=== PATIENT | female | born 1980 | race Caucasian/White ===

== ENCOUNTER 2023-08-24 12:19 | Outpatient (REF) | payer BC, SELFPAY ==
[2023-08-24 12:06] LABS: Abs Immature Grans 0.02 10^3/uL (0.0-0.06); Absolute Basophil Count 0.05 10^3/uL (0.0-0.2); Absolute Eosinophil Count 0.19 10^3/uL (0.0-0.7); Absolute Monocyte Count 0.56 10^3/uL (0.1-0.8); Absolute Neutrophil Count 5.52 10^3/uL (1.2-6.7); Basophils % 0.6; Eosinophils % 2.2; Immature Grans % 0.2; Lymphocytes % 27.5; MCHC 33.3 % (32.0-36.0); MCV 84 fL (80-95); MPV 9.8 fL (8.0-11.0); Monocytes % 6.4; Neutrophils % 63.1; Platelet Count 272 10^3/uL (130-400); RBC 4.64 10^6/uL (3.93-5.22); RDW 13.4 % (11.7-14.6); RDW-SD 41.1 fL; WBC 8.74 10^3/uL (4.4-10.8)
[2023-08-24 12:31] LABS: ALT 22 U/L (14-59); AST 13 U/L (15-37); Albumin 3.5 g/dL (3.4-5.0); Alkaline Phosphatase 106 U/L (46-116); BUN 9 mg/dL (7-18); Bilirubin, Total 0.3 mg/dL (0.2-1.0); CREATININE 0.7 mg/dL (0.55-1.02); Calcium 8.6 mg/dL (8.5-10.1); Chloride 107 mmol/L (98-107); Estimated GFR 111.36 (mL/min/1.73m2); Glucose 111 mg/dL (74-106); Sodium 143 mmol/L (136-145); Total Protein 7.2 g/dL (6.4-8.2)
== END 2023-08-24 12:20 | disposition home or self-care (01) ==
LOC: LBN 12:19
PROVIDERS: Visit Provider Internal Medicine Hematology & Oncology
DX: C50.911 Malignant neoplasm of unspecified site of right female breast (principal)
CPT/HCPCS: 80053; 85025

== ENCOUNTER 2023-10-05 05:32 | Outpatient (RCR) | payer BC, SELFPAY ==
[2023-09-07] MEDS: Normal Saline Flush 10 ML SYR IVP (13:00)
[2023-09-07 13:15] LABS: Abs Immature Grans 0.03 10^3/uL (0.0-0.06); Absolute Basophil Count 0.05 10^3/uL (0.0-0.2); Absolute Eosinophil Count 0.06 10^3/uL (0.0-0.7); Absolute Lymphocyte Count 1.92 10^3/uL (1.2-3.4); Absolute Monocyte Count 0.78 10^3/uL (0.1-0.8); Absolute Neutrophil Count 4.17 10^3/uL (1.2-6.7); Basophils % 0.7; Eosinophils % 0.9; HCT 41.4 % (36.0-46.0); HGB 13.5 g/dL (11.2-15.7); Immature Grans % 0.4; Lymphocytes % 27.4; MCH 27.5 pg (27.0-33.0); MCHC 32.6 % (32.0-36.0); MCV 84 fL (80-95); MPV 9.1 fL (8.0-11.0); Monocytes % 11.1; Neutrophils % 59.5; Platelet Count 255 10^3/uL (130-400); RBC 4.91 10^6/uL (3.93-5.22); RDW 13.2 % (11.7-14.6); RDW-SD 39.9 fL; WBC 7.01 10^3/uL (4.4-10.8)
[2023-09-07 13:29] LABS: ALT 30 U/L (14-59); AST 16 U/L (15-37); Alkaline Phosphatase 105 U/L (46-116); Anion Gap 9.5 mmol/L (3-11); BUN 17 mg/dL (7-18); Bilirubin, Total 0.4 mg/dL (0.2-1.0); CO2 28.5 mmol/L (21.0-32.0); CREATININE 0.8 mg/dL (0.55-1.02); Chloride 103 mmol/L (98-107); Estimated GFR 94.87 (mL/min/1.73m2); Glucose 91 mg/dL (74-106); Potassium 4.2 mmol/L (3.5-5.1); Sodium 141 mmol/L (136-145); Total Protein 7.4 g/dL (6.4-8.2)
[2023-09-21] MEDS: Normal Saline Flush 10 ML SYR IVP (12:40)
[2023-09-21 13:03] LABS: Abs Immature Grans 0.59 10^3/uL (0.0-0.06); HCT 37.7 % (36.0-46.0); HGB 12.6 g/dL (11.2-15.7); MCH 27.9 pg (27.0-33.0); MCHC 33.4 % (32.0-36.0); MCV 84 fL (80-95); MPV 10.3 fL (8.0-11.0); Platelet Count 256 10^3/uL (130-400); RBC 4.51 10^6/uL (3.93-5.22); RDW 14.3 % (11.7-14.6); RDW-SD 41.9 fL; WBC 11.78 10^3/uL (4.4-10.8)
[2023-09-21 13:13] LABS: Absolute Eosinophil Count 0.12 10^3/uL (0.0-0.7); Absolute Lymphocyte Count 2.24 10^3/uL (1.2-3.4); Absolute Monocyte Count 0.24 10^3/uL (0.1-0.8); Absolute Neutrophil Count 8.84 10^3/uL (1.2-6.7); Bands % 5; Diff Comment Manual Differential; Metamyelocytes % 2; Myelocytes % 1; RBC Morphology Normal
[2023-09-21 13:43] LABS: ALT 37 U/L (14-59); AST 16 U/L (15-37); Albumin 3.7 g/dL (3.4-5.0); Alkaline Phosphatase 122 U/L (46-116); BUN 16 mg/dL (7-18); Bilirubin, Total 0.4 mg/dL (0.2-1.0); CREATININE 0.8 mg/dL (0.55-1.02); Chloride 105 mmol/L (98-107); Estimated GFR 94.87 (mL/min/1.73m2); Glucose 119 mg/dL (74-106); Potassium 4.1 mmol/L (3.5-5.1); Sodium 142 mmol/L (136-145); Total Protein 7.4 g/dL (6.4-8.2)
[2023-10-05] MEDS: Normal Saline Flush 10 ML SYR IVP (12:33)
[2023-10-05 12:55] LABS: Abs Immature Grans 2.04 10^3/uL (0.0-0.06); HCT 37.6 % (36.0-46.0); HGB 12.6 g/dL (11.2-15.7); MCH 28.5 pg (27.0-33.0); MCHC 33.5 % (32.0-36.0); MCV 85 fL (80-95); MPV 9.4 fL (8.0-11.0); Platelet Count 238 10^3/uL (130-400); RBC 4.42 10^6/uL (3.93-5.22); RDW 15.6 % (11.7-14.6); RDW-SD 46.8 fL; WBC 13.28 10^3/uL (4.4-10.8)
[2023-10-05 13:07] LABS: Absolute Basophil Count 0.13 10^3/uL (0.0-0.2); Absolute Lymphocyte Count 1.46 10^3/uL (1.2-3.4); Absolute Monocyte Count 1.46 10^3/uL (0.1-0.8); Bands % 9; Diff Comment Manual Differential; Metamyelocytes % 5; Myelocytes % 5; RBC Morphology Normal
[2023-10-05 13:12] LABS: ALT 32 U/L (14-59); AST 11 U/L (15-37); Alkaline Phosphatase 107 U/L (46-116); Anion Gap 8.8 mmol/L (3-11); BUN 18 mg/dL (7-18); Bilirubin, Total 0.3 mg/dL (0.2-1.0); CO2 27.2 mmol/L (21.0-32.0); CREATININE 0.8 mg/dL (0.55-1.02); Calcium 9.2 mg/dL (8.5-10.1); Chloride 103 mmol/L (98-107); Estimated GFR 94.87 (mL/min/1.73m2); Glucose 122 mg/dL (74-106); Potassium 3.8 mmol/L (3.5-5.1); Sodium 139 mmol/L (136-145); Total Protein 7.4 g/dL (6.4-8.2)
== END 2023-10-05 23:59 | disposition home or self-care (01) ==
LOC: INF 05:32
PROVIDERS: Visit Provider Internal Medicine Hematology & Oncology
DX: C50.911 Malignant neoplasm of unspecified site of right female breast (principal); Z45.2 Encounter for adjustment and management of vascular access device
CPT/HCPCS: 36591; 80053; 85025

== ENCOUNTER 2023-11-02 01:06 | Outpatient (RCR) | payer BC, SELFPAY ==
[2023-10-19 08:47] LABS: HCT 35.8 % (36.0-46.0); HGB 12.1 g/dL (11.2-15.7); MCH 28.9 pg (27.0-33.0); MCHC 33.8 % (32.0-36.0); MCV 86 fL (80-95); MPV 9.7 fL (8.0-11.0); Nucleated RBC 0.5 % (0.0-0.3); Platelet Count 238 10^3/uL (130-400); RBC 4.18 10^6/uL (3.93-5.22); RDW 16.4 % (11.7-14.6); RDW-SD 50.3 fL
[2023-10-19 09:01] LABS: Absolute Basophil Count 0.09 10^3/uL (0.0-0.2); Absolute Eosinophil Count 0.09 10^3/uL (0.0-0.7); Absolute Lymphocyte Count 1.81 10^3/uL (1.2-3.4); Absolute Neutrophil Count 5.68 10^3/uL (1.2-6.7); Bands % 5 %; Diff Comment Manual Differential; Metamyelocytes % 3; Myelocytes % 1; RBC Morphology Normal
[2023-10-19 09:07] LABS: ALT 29 U/L (14-59); AST 16 U/L (15-37); Albumin 3.8 g/dL (3.4-5.0); Alkaline Phosphatase 119 U/L (46-116); Anion Gap 8.3 mmol/L (3-11); BUN 13 mg/dL (7-18); Bilirubin, Total 0.4 mg/dL (0.2-1.0); CO2 27.7 mmol/L (21.0-32.0); CREATININE 0.8 mg/dL (0.55-1.02); Calcium 8.6 mg/dL (8.5-10.1); Chloride 105 mmol/L (98-107); Estimated GFR 94.87 (mL/min/1.73m2); Glucose 129 mg/dL (74-106); Potassium 4.1 mmol/L (3.5-5.1); Sodium 141 mmol/L (136-145)
[2023-10-19] MEDS: Normal Saline Flush 10 ML SYR IVP (09:21)
[2023-11-02] MEDS: Normal Saline Flush 10 ML SYR IVP (08:11)
[2023-11-02 08:47] LABS: Abs Immature Grans 0.09 10^3/uL (0.0-0.06); Absolute Basophil Count 0.09 10^3/uL (0.0-0.2); Absolute Eosinophil Count 0.08 10^3/uL (0.0-0.7); Absolute Lymphocyte Count 1.81 10^3/uL (1.2-3.4); Absolute Monocyte Count 0.89 10^3/uL (0.1-0.8); Absolute Neutrophil Count 6.59 10^3/uL (1.2-6.7); Basophils % 0.9 %; Eosinophils % 0.8 %; HGB 11.9 g/dL (11.2-15.7); Immature Grans % 0.9 %; MCH 28.7 pg (27.0-33.0); MCHC 33.1 % (32.0-36.0); MCV 87 fL (80-95); MPV 9.4 fL (8.0-11.0); Monocytes % 9.3 %; Neutrophils % 69.1 %; Platelet Count 350 10^3/uL (130-400); RBC 4.15 10^6/uL (3.93-5.22); RDW 15.9 % (11.7-14.6); WBC 9.55 10^3/uL (4.4-10.8)
[2023-11-02 09:08] LABS: ALT 31 U/L (14-59); AST 12 U/L (15-37); Albumin 3.7 g/dL (3.4-5.0); Alkaline Phosphatase 86 U/L (46-116); BUN 16 mg/dL (7-18); Bilirubin, Total 0.4 mg/dL (0.2-1.0); CREATININE 0.7 mg/dL (0.55-1.02); Calcium 8.7 mg/dL (8.5-10.1); Chloride 104 mmol/L (98-107); Estimated GFR 111.36 (mL/min/1.73m2); Glucose 99 mg/dL (74-106); Potassium 3.9 mmol/L (3.5-5.1); Sodium 140 mmol/L (136-145)
== END 2023-11-05 23:59 | disposition home or self-care (01) ==
LOC: INF 01:06
PROVIDERS: Visit Provider Internal Medicine Hematology & Oncology
DX: Z45.2 Encounter for adjustment and management of vascular access device (principal); C50.919 Malignant neoplasm of unspecified site of unspecified female breast
CPT/HCPCS: 36591; 80053; 85025

== ENCOUNTER 2023-11-30 02:29 | Outpatient (RCR) | payer BC, SELFPAY ==
[2023-11-16] MEDS: Normal Saline Flush 10 ML SYR IVP (08:49)
[2023-11-16 09:18] LABS: Abs Immature Grans 0.12 10^3/uL (0.0-0.06); Absolute Basophil Count 0.06 10^3/uL (0.0-0.2); Absolute Eosinophil Count 0.24 10^3/uL (0.0-0.7); Absolute Lymphocyte Count 1.41 10^3/uL (1.2-3.4); Absolute Neutrophil Count 10.38 10^3/uL (1.2-6.7); Basophils % 0.5 %; Eosinophils % 1.9 %; HCT 36.2 % (36.0-46.0); Immature Grans % 0.9 %; Lymphocytes % 11.1 %; MCHC 33.1 % (32.0-36.0); MCV 87 fL (80-95); MPV 10.6 fL (8.0-11.0); Monocytes % 3.9 %; Neutrophils % 81.7 %; Platelet Count 153 10^3/uL (130-400); RBC 4.14 10^6/uL (3.93-5.22); RDW-SD 50.3 fL; WBC 12.71 10^3/uL (4.4-10.8)
[2023-11-16 09:44] LABS: ALT 42 U/L (14-59); AST 15 U/L (15-37); Albumin 3.8 g/dL (3.4-5.0); Alkaline Phosphatase 143 U/L (46-116); BUN 18 mg/dL (7-18); Bilirubin, Total 0.5 mg/dL (0.2-1.0); CREATININE 0.8 mg/dL (0.55-1.02); Calcium 8.9 mg/dL (8.5-10.1); Chloride 105 mmol/L (98-107); Estimated GFR 94.87 (mL/min/1.73m2); Glucose 119 mg/dL (74-106); Potassium 4.2 mmol/L (3.5-5.1); Sodium 140 mmol/L (136-145); Total Protein 7.3 g/dL (6.4-8.2)
[2023-11-30] MEDS: Normal Saline Flush 10 ML SYR IVP (07:45)
[2023-11-30 08:03] LABS: Abs Immature Grans 0.29 10^3/uL (0.0-0.06); Absolute Basophil Count 0.11 10^3/uL (0.0-0.2); Absolute Eosinophil Count 0.27 10^3/uL (0.0-0.7); Absolute Lymphocyte Count 1.59 10^3/uL (1.2-3.4); Absolute Monocyte Count 0.82 10^3/uL (0.1-0.8); Absolute Neutrophil Count 10.39 10^3/uL (1.2-6.7); Basophils % 0.8 %; HCT 37.4 % (36.0-46.0); HGB 12.3 g/dL (11.2-15.7); Immature Grans % 2.2 %; Lymphocytes % 11.8 %; MCH 29.1 pg (27.0-33.0); MCHC 32.9 % (32.0-36.0); MCV 89 fL (80-95); MPV 9.9 fL (8.0-11.0); Monocytes % 6.1 %; Neutrophils % 77.1 %; Platelet Count 243 10^3/uL (130-400); RBC 4.22 10^6/uL (3.93-5.22); RDW 15.7 % (11.7-14.6); RDW-SD 50.6 fL; WBC 13.47 10^3/uL (4.4-10.8)
[2023-11-30 08:22] LABS: ALT 37 U/L (14-59); AST 16 U/L (15-37); Albumin 3.8 g/dL (3.4-5.0); Alkaline Phosphatase 139 U/L (46-116); Anion Gap 10.7 mmol/L (3-11); BUN 12 mg/dL (7-18); Bilirubin, Total 0.51 mg/dL (0.2-1.0); CO2 25.3 mmol/L (21.0-32.0); CREATININE 0.8 mg/dL (0.55-1.02); Calcium 9.1 mg/dL (8.5-10.1); Chloride 102 mmol/L (98-107); Estimated GFR 94.87 (mL/min/1.73m2); Glucose 110 mg/dL (74-106); Potassium 4.1 mmol/L (3.5-5.1); Sodium 138 mmol/L (136-145); Total Protein 7.2 g/dL (6.4-8.2)
== END 2023-12-05 23:59 | disposition home or self-care (01) ==
LOC: INF 02:29
PROVIDERS: Visit Provider Internal Medicine Hematology & Oncology
DX: Z45.2 Encounter for adjustment and management of vascular access device (principal); C50.911 Malignant neoplasm of unspecified site of right female breast
CPT/HCPCS: 36591; 80053; 85025

== ENCOUNTER 2024-02-17 02:04 | Outpatient (CLI) | payer BC, SELFPAY ==
--- NOTE | 2024-02-17 | DI.DEXA_ITS ---
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 Lat eral survey image of the thoracic and lumbar spine. COMPARISON: No exams were available for comparison FINDINGS: Lateral view of the thoracic and lumbar spine shows no evidence of compression fractures. Bone mineral density measurements of the lumbar spine correspond to a total T-score of 1.4, in the n ormal range Bone mineral density measurements of the left hip correspond to a total T-score of 0.8. The femoral neck T-score is -0.1, in the normal range.. Theleft forearm bone mineral density measurements correspond to a T-score of the distal 3rd of 1.3, in the normal range. IMPRESSION: Normal bone mineral density.
== END 2024-02-17 02:24 ==
LOC: DI 02:04
PROVIDERS: Visit Provider Nurse Practitioner Family
DX: C50.911 Malignant neoplasm of unspecified site of right female breast (principal)
CPT/HCPCS: 77080

== ENCOUNTER 2024-02-22 18:41 | Outpatient (CLI) | payer BC, SELFPAY ==
[2024-02-22 23:27] LABS: Estradiol <12 pg/mL (See Note)
[2024-02-23 08:37] LABS: FSH 6.9 mIU/mL (See Note)
== END 2024-02-22 18:42 | disposition home or self-care (01) ==
LOC: LBO 18:42
PROVIDERS: Visit Provider Internal Medicine Hematology & Oncology
DX: C50.911 Malignant neoplasm of unspecified site of right female breast (principal); C50.919 Malignant neoplasm of unspecified site of unspecified female breast; E28.39 Other primary ovarian failure
CPT/HCPCS: 36415; 82670; 83001

== ENCOUNTER 2024-03-30 03:30 | Outpatient (CLI) | payer BC, SELFPAY ==
[2024-03-30 22:46] LABS: Estradiol <12 pg/mL (See Note)
[2024-03-30 23:00] LABS: FSH 12.4 mIU/mL (See Note)
== END 2024-03-30 03:31 | disposition home or self-care (01) ==
PROVIDERS: Internal Medicine Hematology & Oncology; Visit Provider Internal Medicine Hematology & Oncology
DX: C50.911 Malignant neoplasm of unspecified site of right female breast (principal); C50.919 Malignant neoplasm of unspecified site of unspecified female breast; E28.39 Other primary ovarian failure
CPT/HCPCS: 36415; 82670; 83001

== ENCOUNTER 2024-04-27 12:53 | Outpatient (CLI) | payer BC, SELFPAY ==
[2024-04-27 22:55] LABS: Estradiol <12 pg/mL (See Note)
[2024-04-28 08:27] LABS: FSH 9.4 mIU/mL (See Note)
== END 2024-04-27 12:54 | disposition home or self-care (01) ==
LOC: LBO 12:56
PROVIDERS: Visit Provider Internal Medicine Hematology & Oncology
DX: C50.911 Malignant neoplasm of unspecified site of right female breast (principal); E28.39 Other primary ovarian failure
CPT/HCPCS: 36415; 82670; 83001

== ENCOUNTER 2024-05-16 13:48 | Outpatient (CLI) | payer BC, SELFPAY ==
--- NOTE | 2024-05-16 13:45 | RT.EKG_ITS ---
APPROVED REPORT Exam: Resting ECG Reason for Exam: RIGHT BREAST CANCER STAGE 2 Patient Location: O HR:94 bpm ECG Measurements Heart Rate 94 AXIS NE 164 P 72 QRSd 82 QRS 60 QT 348 T 62 QTc 436 Conclusion Sinus rhythm...normal P axis, V-rate 50- 99 Probable left atrial enlargement...P >50mS, <-0.10mV V1 Otherwise normal ECG
== END 2024-05-16 13:49 | disposition home or self-care (01) ==
PROVIDERS: Visit Provider Internal Medicine Medical Oncology
DX: C50.911 Malignant neoplasm of unspecified site of right female breast (principal)
CPT/HCPCS: 93005; 93010

== ENCOUNTER 2024-05-18 13:48 | Outpatient (CLI) | payer BC, SELFPAY ==
[2024-05-18 13:56] LABS: Abs Immature Grans 0.04 10^3/uL (0.0-0.06); Absolute Basophil Count 0.06 10^3/uL (0.0-0.2); Absolute Lymphocyte Count 1.95 10^3/uL (1.2-3.4); Absolute Monocyte Count 0.52 10^3/uL (0.1-0.8); Absolute Neutrophil Count 6.49 10^3/uL (1.2-6.7); Basophils % 0.6 %; Eosinophils % 2.2 %; HCT 41.6 % (36.0-46.0); Immature Grans % 0.4 %; Lymphocytes % 21.1 %; MCH 27.7 pg (27.0-33.0); MCHC 33.7 % (32.0-36.0); MCV 82 fL (80-95); MPV 9.1 fL (8.0-11.0); Monocytes % 5.6 %; Neutrophils % 70.1 %; Platelet Count 278 10^3/uL (130-400); RBC 5.06 10^6/uL (3.93-5.22); RDW 13.4 % (11.7-14.6); RDW-SD 39.5 fL; WBC 9.26 10^3/uL (4.4-10.8)
== END 2024-05-18 13:49 | disposition home or self-care (01) ==
LOC: LBO 13:48
PROVIDERS: Visit Provider Internal Medicine Medical Oncology
DX: C50.911 Malignant neoplasm of unspecified site of right female breast (principal)
CPT/HCPCS: 36415; 85025

== ENCOUNTER 2024-06-01 01:36 | Outpatient (CLI) | payer BC, SELFPAY ==
[2024-06-01 12:46] LABS: Abs Immature Grans 0.05 10^3/uL (0.0-0.06); Absolute Basophil Count 0.05 10^3/uL (0.0-0.2); Absolute Eosinophil Count 0.12 10^3/uL (0.0-0.7); Absolute Lymphocyte Count 1.26 10^3/uL (1.2-3.4); Absolute Monocyte Count 0.18 10^3/uL (0.1-0.8); Absolute Neutrophil Count 3.94 10^3/uL (1.2-6.7); Basophils % 0.9 %; Eosinophils % 2.1 %; HCT 42.6 % (36.0-46.0); HGB 14.1 g/dL (11.2-15.7); Immature Grans % 0.9 %; Lymphocytes % 22.5 %; MCH 27.9 pg (27.0-33.0); MCHC 33.1 % (32.0-36.0); MCV 84 fL (80-95); Monocytes % 3.2 %; Neutrophils % 70.4 %; RBC 5.05 10^6/uL (3.93-5.22); RDW 13.9 % (11.7-14.6); RDW-SD 41.3 fL
[2024-06-01 13:15] LABS: Platelet Count 174 10^3/uL (130-400)
[2024-06-01 13:50] LABS: TSH 2.58 uIU/mL (0.36-3.74)
== END 2024-06-01 01:37 | disposition home or self-care (01) ==
PROVIDERS: Internal Medicine Medical Oncology; Nurse Practitioner Adult Health; Visit Provider Internal Medicine Hematology & Oncology
DX: E89.0 Postprocedural hypothyroidism (principal); C50.911 Malignant neoplasm of unspecified site of right female breast
CPT/HCPCS: 36415; 80053; 82670; 83001; 84443; 85025

== ENCOUNTER 2024-06-01 12:58 | Outpatient (CLI) | payer BC, SELFPAY ==
--- NOTE | 2024-06-01 13:00 | RT.EKG_ITS ---
APPROVED REPORT Exam: Resting ECG Reason for Exam: BREAST CA Patient Location: O HR:74 bpm ECG Measurements Heart Rate 74 AXIS FL 153 P 65 QRSd 81 QRS 63 QT 377 T 65 QTc 419 Conclusion Sinus rhythm...normal P axis, V-rate 50- 99 Normal Electrocardiogram
== END 2024-06-01 12:59 | disposition home or self-care (01) ==
LOC: CARDOPNVT 12:58
PROVIDERS: Visit Provider Internal Medicine Medical Oncology
DX: C50.911 Malignant neoplasm of unspecified site of right female breast (principal)
CPT/HCPCS: 93005; 93010

== ENCOUNTER 2024-06-15 04:56 | Outpatient (CLI) | payer BC, SELFPAY ==
[2024-06-15 11:21] LABS: Abs Immature Grans 0.01 10^3/uL (0.0-0.06); Absolute Basophil Count 0.05 10^3/uL (0.0-0.2); Absolute Eosinophil Count 0.06 10^3/uL (0.0-0.7); Absolute Monocyte Count 0.32 10^3/uL (0.1-0.8); Absolute Neutrophil Count 3.77 10^3/uL (1.2-6.7); Basophils % 0.9 %; Eosinophils % 1.1 %; HGB 12.6 g/dL (11.2-15.7); Immature Grans % 0.2 %; Lymphocytes % 22.2 %; MCH 28.7 pg (27.0-33.0); MCHC 33.2 % (32.0-36.0); MCV 87 fL (80-95); MPV 8.5 fL (8.0-11.0); Monocytes % 5.9 %; Neutrophils % 69.7 %; Platelet Count 243 10^3/uL (130-400); RBC 4.39 10^6/uL (3.93-5.22); RDW 15.3 % (11.7-14.6); RDW-SD 47.4 fL; WBC 5.41 10^3/uL (4.4-10.8)
[2024-06-15 12:21] LABS: ALT 36 U/L (14-59); AST 28 U/L (15-37); Albumin 4.2 g/dL (3.4-5.0); Alkaline Phosphatase 123 U/L (46-116); Anion Gap 5.4 mmol/L (3-11); BUN 12 mg/dL (7-18); Bilirubin, Total 0.55 mg/dL (0.2-1.0); CO2 32.6 mmol/L (21.0-32.0); Calcium 9.6 mg/dL (8.5-10.1); Chloride 104 mmol/L (98-107); Estimated GFR 72.13 (mL/min/1.73m2); Glucose 106 mg/dL (74-106); Potassium 3.7 mmol/L (3.5-5.1); Sodium 142 mmol/L (136-145); Total Protein 7.7 g/dL (6.4-8.2)
[2024-06-15 20:18] LABS: Estradiol <12 pg/mL (See Note)
[2024-06-15 20:28] LABS: FSH 11.3 mIU/mL (See Note)
== END 2024-06-15 04:57 | disposition home or self-care (01) ==
PROVIDERS: Visit Provider Nurse Practitioner Family
DX: E28.39 Other primary ovarian failure (principal); C50.911 Malignant neoplasm of unspecified site of right female breast
CPT/HCPCS: 36415; 80053; 82670; 83001; 85025

== ENCOUNTER 2024-06-15 09:24 | Outpatient (CLI) | payer BC, SELFPAY ==
--- NOTE | 2024-06-15 09:15 | RT.EKG_ITS ---
APPROVED REPORT Exam: Resting ECG Reason for Exam: BREAST CA Patient Location: O HR:79 bpm ECG Measurements Heart Rate 79 AXIS AZ 146 P 41 QRSd 94 QRS 22 QT 373 T 24 QTc 428 Conclusion Sinus rhythm...normal P axis, V-rate 50- 99 Normal Electrocardiogram
== END 2024-06-15 09:25 | disposition home or self-care (01) ==
PROVIDERS: Visit Provider Nurse Practitioner Family
DX: C50.911 Malignant neoplasm of unspecified site of right female breast (principal); Z79.899 Other long term (current) drug therapy
CPT/HCPCS: 93005; 93010

== ENCOUNTER 2024-07-13 01:47 | Outpatient (CLI) | payer BC, SELFPAY ==
[2024-07-13 09:38] LABS: Abs Immature Grans 0.02 10^3/uL (0.0-0.06); Absolute Basophil Count 0.06 10^3/uL (0.0-0.2); Absolute Eosinophil Count 0.06 10^3/uL (0.0-0.7); Absolute Lymphocyte Count 1.21 10^3/uL (1.2-3.4); Absolute Monocyte Count 0.36 10^3/uL (0.1-0.8); Absolute Neutrophil Count 3.72 10^3/uL (1.2-6.7); Basophils % 1.1 %; Eosinophils % 1.1 %; HGB 13.2 g/dL (11.2-15.7); Immature Grans % 0.4 %; Lymphocytes % 22.3 %; MCH 29.5 pg (27.0-33.0); MCHC 33.8 % (32.0-36.0); MCV 87 fL (80-95); MPV 8.4 fL (8.0-11.0); Monocytes % 6.6 %; Neutrophils % 68.5 %; Platelet Count 206 10^3/uL (130-400); RBC 4.47 10^6/uL (3.93-5.22); RDW 15.5 % (11.7-14.6); RDW-SD 48.6 fL; WBC 5.43 10^3/uL (4.4-10.8)
[2024-07-13 10:02] LABS: ALT 30 U/L (14-59); AST 21 U/L (15-37); Alkaline Phosphatase 126 U/L (46-116); Anion Gap 5.3 mmol/L (3-11); BUN 15 mg/dL (7-18); CO2 32.7 mmol/L (21.0-32.0); Calcium 9.5 mg/dL (8.5-10.1); Chloride 101 mmol/L (98-107); Estimated GFR 72.13 (mL/min/1.73m2); Glucose 94 mg/dL (74-106); Potassium 3.6 mmol/L (3.5-5.1); Sodium 139 mmol/L (136-145); Total Protein 7.7 g/dL (6.4-8.2)
[2024-07-13 23:03] LABS: FSH 10.1 mIU/mL (See Note)
[2024-07-13 23:06] LABS: Estradiol <12 pg/mL (See Note)
== END 2024-07-13 01:48 | disposition home or self-care (01) ==
LOC: LBO 01:47
PROVIDERS: Visit Provider Nurse Practitioner Family
DX: E28.39 Other primary ovarian failure (principal); C50.911 Malignant neoplasm of unspecified site of right female breast
CPT/HCPCS: 36415; 80053; 82670; 83001; 85025

== ENCOUNTER 2024-07-13 08:50 | Outpatient (CLI) | payer BC, SELFPAY ==
--- NOTE | 2024-07-13 08:45 | RT.EKG_ITS ---
APPROVED REPORT Exam: Resting ECG Reason for Exam: BREAST CANCER Patient Location: O HR:99 bpm ECG Measurements Heart Rate 99 AXIS DE 145 P 53 QRSd 80 QRS 22 QT 348 T 30 QTc 447 Conclusion Sinus rhythm...normal P axis, V-rate 50- 99 Normal Electrocardiogram
== END 2024-07-13 08:51 | disposition home or self-care (01) ==
PROVIDERS: Visit Provider Internal Medicine Medical Oncology
DX: C50.911 Malignant neoplasm of unspecified site of right female breast (principal); Z79.899 Other long term (current) drug therapy
CPT/HCPCS: 93005; 93010

== ENCOUNTER 2024-08-10 02:58 | Outpatient (CLI) | payer BC, SELFPAY ==
[2024-08-10 09:35] LABS: Abs Immature Grans 0.02 10^3/uL (0.0-0.06); Absolute Basophil Count 0.06 10^3/uL (0.0-0.2); Absolute Eosinophil Count 0.07 10^3/uL (0.0-0.7); Absolute Lymphocyte Count 1.17 10^3/uL (1.2-3.4); Absolute Monocyte Count 0.36 10^3/uL (0.1-0.8); Absolute Neutrophil Count 3.41 10^3/uL (1.2-6.7); Basophils % 1.2 %; Eosinophils % 1.4 %; HCT 37.9 % (36.0-46.0); Immature Grans % 0.4 %; MCHC 34.3 % (32.0-36.0); MCV 87 fL (80-95); MPV 8.7 fL (8.0-11.0); Monocytes % 7.1 %; Neutrophils % 66.9 %; Platelet Count 205 10^3/uL (130-400); RBC 4.34 10^6/uL (3.93-5.22); RDW 14.6 % (11.7-14.6); WBC 5.09 10^3/uL (4.4-10.8)
[2024-08-10 09:52] LABS: ALT 26 U/L (14-59); AST 17 U/L (15-37); Alkaline Phosphatase 118 U/L (46-116); Anion Gap 6.2 mmol/L (3-11); BUN 18 mg/dL (7-18); Bilirubin, Total 0.36 mg/dL (0.2-1.0); CO2 31.8 mmol/L (21.0-32.0); Calcium 9.6 mg/dL (8.5-10.1); Chloride 105 mmol/L (98-107); Estimated GFR 72.13 (mL/min/1.73m2); Glucose 95 mg/dL (74-106); Potassium 3.9 mmol/L (3.5-5.1); Sodium 143 mmol/L (136-145); Total Protein 7.6 g/dL (6.4-8.2)
[2024-08-10 18:13] LABS: Estradiol <12 pg/mL (See Note)
[2024-08-10 18:37] LABS: FSH 10.4 mIU/mL (See Note)
== END 2024-08-10 02:59 | disposition home or self-care (01) ==
PROVIDERS: Visit Provider Nurse Practitioner Family
DX: E28.39 Other primary ovarian failure (principal); C50.911 Malignant neoplasm of unspecified site of right female breast
CPT/HCPCS: 36415; 80053; 82670; 83001; 85025

== ENCOUNTER 2024-08-10 08:57 | Outpatient (CLI) | payer BC, SELFPAY ==
--- NOTE | 2024-08-10 08:45 | RT.EKG_ITS ---
APPROVED REPORT Exam: Resting ECG Reason for Exam: AT RISK FOR PROLONGED QT INTERVAL SYNDROME Patient Location: O HR:76 bpm ECG Measurements Heart Rate 76 AXIS IA 147 P 23 QRSd 81 QRS 17 QT 383 T 32 QTc 431 Conclusion Sinus rhythm...normal P axis, V-rate 50- 99 Probable left atrial enlargement...P >50mS, <-0.10mV V1 Otherwise normal ECG
== END 2024-08-10 08:58 | disposition home or self-care (01) ==
PROVIDERS: Visit Provider Nurse Practitioner Family
DX: E28.39 Other primary ovarian failure (principal); C50.911 Malignant neoplasm of unspecified site of right female breast; Z79.899 Other long term (current) drug therapy
CPT/HCPCS: 93005; 93010

== ENCOUNTER 2024-09-08 01:00 | Outpatient (CLI) | payer BC, SELFPAY ==
[2024-09-08 08:45] LABS: Abs Immature Grans 0.02 10^3/uL (0.0-0.06); Absolute Basophil Count 0.06 10^3/uL (0.0-0.2); Absolute Eosinophil Count 0.08 10^3/uL (0.0-0.7); Absolute Lymphocyte Count 1.09 10^3/uL (1.2-3.4); Absolute Monocyte Count 0.36 10^3/uL (0.1-0.8); Absolute Neutrophil Count 3.17 10^3/uL (1.2-6.7); Basophils % 1.3 %; Eosinophils % 1.7 %; HCT 40.7 % (36.0-46.0); HGB 13.5 g/dL (11.2-15.7); Immature Grans % 0.4 %; Lymphocytes % 22.8 %; MCH 30.1 pg (27.0-33.0); MCHC 33.2 % (32.0-36.0); MCV 91 fL (80-95); MPV 8.8 fL (8.0-11.0); Monocytes % 7.5 %; Neutrophils % 66.3 %; Platelet Count 190 10^3/uL (130-400); RBC 4.49 10^6/uL (3.93-5.22); RDW 13.5 % (11.7-14.6); RDW-SD 44.7 fL; WBC 4.78 10^3/uL (4.4-10.8)
[2024-09-08 09:28] LABS: Calculated LDL 118 mg/dL (<100); Cholesterol 212 mg/dL (<200); HDL Cholesterol 65 mg/dL (>or=50); Triglyceride 147 mg/dL (<150)
[2024-09-08 10:02] LABS: ALT 27 U/L (14-59); AST 18 U/L (15-37); Albumin 4.3 g/dL (3.4-5.0); Alkaline Phosphatase 116 U/L (46-116); Anion Gap 11.9 mmol/L (3-11); BUN 18 mg/dL (7-18); Bilirubin, Total 0.6 mg/dL (0.2-1.0); CO2 27.1 mmol/L (21.0-32.0); CREATININE 0.9 mg/dL (0.55-1.02); Calcium 9.9 mg/dL (8.5-10.1); Chloride 105 mmol/L (98-107); Estimated GFR 81.86 (mL/min/1.73m2); Glucose 88 mg/dL (74-106); Potassium 3.7 mmol/L (3.5-5.1); Sodium 144 mmol/L (136-145); Total Protein 7.6 g/dL (6.4-8.2)
[2024-09-08 19:22] LABS: FSH 9.9 mIU/mL (See Note)
[2024-09-08 19:33] LABS: Estradiol <12 pg/mL (See Note)
== END 2024-09-08 01:01 | disposition home or self-care (01) ==
LOC: LBO 01:00
PROVIDERS: Nurse Practitioner Family; Visit Provider Nurse Practitioner Family
DX: E11.9 Type 2 diabetes mellitus without complications (principal); Z13.6 Encounter for screening for cardiovascular disorders; C50.911 Malignant neoplasm of unspecified site of right female breast; E28.39 Other primary ovarian failure
CPT/HCPCS: 36415; 80053; 80061; 82670; 83001; 85025

== ENCOUNTER 2024-09-08 07:59 | Outpatient (CLI) | payer BC, SELFPAY ==
--- NOTE | 2024-09-08 08:00 | RT.EKG_ITS ---
APPROVED REPORT Exam: Resting ECG Reason for Exam: BREAST CA Patient Location: O HR:77 bpm ECG Measurements Heart Rate 77 AXIS SC 153 P 27 QRSd 89 QRS 21 QT 382 T 30 QTc 433 Conclusion Sinus rhythm...normal P axis, V-rate 50- 99 Probable left atrial enlargement...P >50mS, <-0.10mV V1 Otherwise normal ECG
== END 2024-09-08 08:00 | disposition home or self-care (01) ==
PROVIDERS: Visit Provider Nurse Practitioner Family
DX: C50.511 Malignant neoplasm of lower-outer quadrant of right female breast (principal); Z79.899 Other long term (current) drug therapy
CPT/HCPCS: 93270

== ENCOUNTER 2024-10-06 02:58 | Outpatient (CLI) | payer BC, SELFPAY ==
[2024-10-06 10:13] LABS: Abs Immature Grans 0.01 10^3/uL (0.0-0.06); Absolute Basophil Count 0.05 10^3/uL (0.0-0.2); Absolute Eosinophil Count 0.06 10^3/uL (0.0-0.7); Absolute Lymphocyte Count 1.16 10^3/uL (1.2-3.4); Absolute Monocyte Count 0.27 10^3/uL (0.1-0.8); Absolute Neutrophil Count 2.64 10^3/uL (1.2-6.7); Basophils % 1.2 %; Eosinophils % 1.4 %; HCT 39.9 % (36.0-46.0); HGB 13.6 g/dL (11.2-15.7); Immature Grans % 0.2 %; Lymphocytes % 27.7 %; MCH 30.4 pg (27.0-33.0); MCHC 34.1 % (32.0-36.0); MCV 89 fL (80-95); MPV 8.9 fL (8.0-11.0); Monocytes % 6.4 %; Neutrophils % 63.1 %; Platelet Count 164 10^3/uL (130-400); RBC 4.47 10^6/uL (3.93-5.22); RDW 13.3 % (11.7-14.6); RDW-SD 43.3 fL; WBC 4.19 10^3/uL (4.4-10.8)
[2024-10-06 10:32] LABS: ALT 24 U/L (14-59); AST 18 U/L (15-37); Albumin 4.1 g/dL (3.4-5.0); Alkaline Phosphatase 113 U/L (46-116); BUN 15 mg/dL (7-18); Bilirubin, Total 0.6 mg/dL (0.2-1.0); CREATININE 0.9 mg/dL (0.55-1.02); Calcium 9.5 mg/dL (8.5-10.1); Chloride 103 mmol/L (98-107); Estimated GFR 81.86 (mL/min/1.73m2); Glucose 90 mg/dL (74-106); Potassium 4.1 mmol/L (3.5-5.1); Sodium 141 mmol/L (136-145); Total Protein 7.8 g/dL (6.4-8.2)
[2024-10-06 18:10] LABS: FSH 14.5 mIU/mL (See Note)
[2024-10-06 18:22] LABS: Estradiol <12 pg/mL (See Note)
== END 2024-10-06 02:59 | disposition home or self-care (01) ==
LOC: LBO 02:58
PROVIDERS: Visit Provider Nurse Practitioner Family
DX: C50.911 Malignant neoplasm of unspecified site of right female breast (principal); E28.39 Other primary ovarian failure
CPT/HCPCS: 36415; 80053; 82670; 83001; 85025

== ENCOUNTER 2024-11-03 00:49 | Outpatient (CLI) | payer BC, SELFPAY ==
[2024-11-03 12:26] LABS: Abs Immature Grans 0.01 10^3/uL (0.0-0.06); Absolute Basophil Count 0.05 10^3/uL (0.0-0.2); Absolute Eosinophil Count 0.04 10^3/uL (0.0-0.7); Absolute Lymphocyte Count 1.39 10^3/uL (1.2-3.4); Absolute Monocyte Count 0.34 10^3/uL (0.1-0.8); Absolute Neutrophil Count 2.91 10^3/uL (1.2-6.7); Basophils % 1.1 %; Eosinophils % 0.8 %; HCT 40.6 % (36.0-46.0); HGB 13.8 g/dL (11.2-15.7); Immature Grans % 0.2 %; Lymphocytes % 29.3 %; MCH 30.1 pg (27.0-33.0); MCV 89 fL (80-95); MPV 8.6 fL (8.0-11.0); Monocytes % 7.2 %; Neutrophils % 61.4 %; Platelet Count 194 10^3/uL (130-400); RBC 4.59 10^6/uL (3.93-5.22); RDW 13.5 % (11.7-14.6); RDW-SD 43.4 fL; WBC 4.74 10^3/uL (4.4-10.8)
[2024-11-03 12:42] LABS: ALT 22 U/L (14-59); AST 18 U/L (15-37); Albumin 4.4 g/dL (3.4-5.0); Alkaline Phosphatase 131 U/L (46-116); Anion Gap 8.6 mmol/L (3-11); BUN 13 mg/dL (7-18); Bilirubin, Total 0.7 mg/dL (0.2-1.0); CO2 31.4 mmol/L (21.0-32.0); Chloride 101 mmol/L (98-107); Estimated GFR 72.13 (mL/min/1.73m2); Glucose 92 mg/dL (74-106); Potassium 3.7 mmol/L (3.5-5.1); Sodium 141 mmol/L (136-145); Total Protein 8.1 g/dL (6.4-8.2)
[2024-11-03 12:52] LABS: TSH (W/Ref FT4) 2.59 uIU/mL (0.36-3.74)
[2024-11-03 18:43] LABS: Estradiol 16 pg/mL (See Note)
[2024-11-03 18:53] LABS: FSH 29.6 mIU/mL (See Note)
== END 2024-11-03 00:50 | disposition home or self-care (01) ==
LOC: LBO 00:49
PROVIDERS: Internal Medicine; Visit Provider Nurse Practitioner Family
DX: E28.39 Other primary ovarian failure (principal); C50.911 Malignant neoplasm of unspecified site of right female breast; Z85.850 Personal history of malignant neoplasm of thyroid
CPT/HCPCS: 36415; 80053; 82670; 83001; 84443; 85025

== ENCOUNTER 2024-12-01 00:42 | Outpatient (CLI) | payer BC, SELFPAY ==
[2024-12-01 13:29] LABS: Abs Immature Grans 0.01 10^3/uL (0.0-0.06); Absolute Basophil Count 0.06 10^3/uL (0.0-0.2); Absolute Eosinophil Count 0.08 10^3/uL (0.0-0.7); Absolute Lymphocyte Count 1.36 10^3/uL (1.2-3.4); Absolute Neutrophil Count 2.76 10^3/uL (1.2-6.7); Basophils % 1.3 %; Eosinophils % 1.8 %; HCT 40.7 % (36.0-46.0); HGB 14.3 g/dL (11.2-15.7); Immature Grans % 0.2 %; Lymphocytes % 29.8 %; MCH 31.2 pg (27.0-33.0); MCHC 35.1 % (32.0-36.0); MCV 89 fL (80-95); MPV 8.7 fL (8.0-11.0); Monocytes % 6.6 %; Neutrophils % 60.3 %; Platelet Count 188 10^3/uL (130-400); RBC 4.58 10^6/uL (3.93-5.22); RDW 13.8 % (11.7-14.6); RDW-SD 43.9 fL; WBC 4.57 10^3/uL (4.4-10.8)
[2024-12-01 13:45] LABS: ALT 23 U/L (14-59); AST 15 U/L (15-37); Albumin 4.3 g/dL (3.4-5.0); Alkaline Phosphatase 126 U/L (46-116); Anion Gap 8.8 mmol/L (3-11); BUN 13 mg/dL (7-18); Bilirubin, Total 0.6 mg/dL (0.2-1.0); CO2 28.2 mmol/L (21.0-32.0); CREATININE 0.8 mg/dL (0.55-1.02); Calcium 9.2 mg/dL (8.5-10.1); Chloride 102 mmol/L (98-107); Estimated GFR 94.28 (mL/min/1.73m2); Glucose 87 mg/dL (74-106); Potassium 3.7 mmol/L (3.5-5.1); Sodium 139 mmol/L (136-145); Total Protein 8.1 g/dL (6.4-8.2)
== END 2024-12-01 00:43 | disposition home or self-care (01) ==
LOC: LBO 00:42
PROVIDERS: Visit Provider Nurse Practitioner Family
DX: E28.39 Other primary ovarian failure (principal); C50.911 Malignant neoplasm of unspecified site of right female breast
CPT/HCPCS: 36415; 80053; 82670; 83001; 85025

== ENCOUNTER 2024-12-29 00:51 | Outpatient (CLI) | payer BC, SELFPAY ==
[2024-12-29 13:41] LABS: Abs Immature Grans 0.02 10^3/uL (0.0-0.06); HCT 35.8 % (36.0-46.0); HGB 12.4 g/dL (11.2-15.7); Immature Grans % 0.4 %; MCH 31.5 pg (27.0-33.0); MCHC 34.6 % (32.0-36.0); MCV 91 fL (80-95); MPV 8.5 fL (8.0-11.0); Platelet Count 181 10^3/uL (130-400); RBC 3.94 10^6/uL (3.93-5.22); RDW 13.7 % (11.7-14.6); RDW-SD 44.8 fL; WBC 4.89 10^3/uL (4.4-10.8)
[2024-12-29 14:35] LABS: ALT 21 U/L (14-59); AST 12 U/L (15-37); Albumin 4.0 g/dL (3.4-5.0); Alkaline Phosphatase 114 U/L (46-116); Anion Gap 8.9 mmol/L (3-11); BUN 17 mg/dL (7-18); Bilirubin, Total 0.7 mg/dL (0.2-1.0); CO2 29.1 mmol/L (21.0-32.0); Calcium 9.4 mg/dL (8.5-10.1); Chloride 103 mmol/L (98-107); Estimated GFR 94.28 (mL/min/1.73m2); Glucose 97 mg/dL (74-106); Potassium 3.7 mmol/L (3.5-5.1); Sodium 141 mmol/L (136-145); Total Protein 7.6 g/dL (6.4-8.2)
== END 2024-12-29 00:52 | disposition home or self-care (01) ==
PROVIDERS: Visit Provider Nurse Practitioner Family
DX: C50.911 Malignant neoplasm of unspecified site of right female breast (principal)
CPT/HCPCS: 36415; 80053; 85025

== ENCOUNTER 2025-01-26 00:29 | Outpatient (CLI) | payer BC, SELFPAY ==
[2025-01-26 12:12] LABS: Abs Immature Grans 0.02 10^3/uL (0.0-0.06); HCT 34.0 % (36.0-46.0); HGB 12.1 g/dL (11.2-15.7); Immature Grans % 0.5 %; MCH 31.3 pg (27.0-33.0); MCHC 35.6 % (32.0-36.0); MCV 88 fL (80-95); MPV 8.8 fL (8.0-11.0); Platelet Count 175 10^3/uL (130-400); RBC 3.87 10^6/uL (3.93-5.22); RDW 13.2 % (11.7-14.6); RDW-SD 42.1 fL; WBC 4.43 10^3/uL (4.4-10.8)
[2025-01-26 12:30] LABS: ALT 19 U/L (14-59); AST 13 U/L (15-37); Albumin 3.8 g/dL (3.4-5.0); Alkaline Phosphatase 106 U/L (46-116); Anion Gap 8.7 mmol/L (3-11); BUN 11 mg/dL (7-18); Bilirubin, Total 0.5 mg/dL (0.2-1.0); CO2 26.3 mmol/L (21.0-32.0); Calcium 8.8 mg/dL (8.5-10.1); Chloride 103 mmol/L (98-107); Estimated GFR 94.28 (mL/min/1.73m2); Glucose 87 mg/dL (74-106); Potassium 4.0 mmol/L (3.5-5.1); Sodium 138 mmol/L (136-145); Total Protein 7.1 g/dL (6.4-8.2)
== END 2025-01-26 00:30 | disposition home or self-care (01) ==
LOC: LBO 00:30
PROVIDERS: Visit Provider Nurse Practitioner Family
DX: C50.911 Malignant neoplasm of unspecified site of right female breast (principal)
CPT/HCPCS: 36415; 80053; 85025

== ENCOUNTER 2025-05-04 02:18 | Outpatient (CLI) | payer BC, SELFPAY ==
[2025-05-04 13:49] LABS: Abs Immature Grans 0.02 10^3/uL (0.0-0.06); HCT 37.6 % (36.0-46.0); HGB 12.9 g/dL (11.2-15.7); Immature Grans % 0.4 %; MCH 30.9 pg (27.0-33.0); MCHC 34.3 % (32.0-36.0); MCV 90 fL (80-95); MPV 8.7 fL (8.0-11.0); Platelet Count 213 10^3/uL (130-400); RBC 4.17 10^6/uL (3.93-5.22); RDW 13.4 % (11.7-14.6); RDW-SD 43.8 fL; WBC 5.31 10^3/uL (4.4-10.8)
[2025-05-04 14:15] LABS: ALT 18 U/L (10-49); AST 21 U/L (<34); Albumin 4.6 g/dL (3.2-5.0); Alkaline Phosphatase 89 U/L (46-116); Anion Gap 8.4 mmol/L (3-11); BUN 15 mg/dL (9-23); Bilirubin, Total 0.70 mg/dL (0.2-1.2); CO2 28.6 mmol/L (20.0-31.0); Calcium 9.6 mg/dL (8.3-10.6); Chloride 105 mmol/L (98-107); Glucose 103 mg/dL (74-106); Potassium 4.2 mmol/L (3.5-5.1); Sodium 142 mmol/L (136-145); Total Protein 7.5 g/dL (5.7-8.2)
[2025-05-04 22:17] LABS: FSH 78.4 mIU/mL (See Note)
== END 2025-05-04 02:19 | disposition home or self-care (01) ==
LOC: LBO 02:18
PROVIDERS: Visit Provider Nurse Practitioner Family
DX: C50.911 Malignant neoplasm of unspecified site of right female breast (principal)
CPT/HCPCS: 36415; 80053; 82670; 83001; 85025

== ENCOUNTER 2025-05-25 00:49 | Outpatient (CLI) | payer BC, SELFPAY ==
[2025-05-25 11:49] LABS: Abs Immature Grans 0.01 10^3/uL (0.0-0.06); HCT 37.3 % (36.0-46.0); HGB 12.9 g/dL (11.2-15.7); Immature Grans % 0.3 %; MCH 31.3 pg (27.0-33.0); MCHC 34.6 % (32.0-36.0); MCV 91 fL (80-95); MPV 8.9 fL (8.0-11.0); Platelet Count 169 10^3/uL (130-400); RBC 4.12 10^6/uL (3.93-5.22); RDW 13.2 % (11.7-14.6); RDW-SD 43.3 fL; WBC 3.73 10^3/uL (4.4-10.8)
[2025-05-25 12:05] LABS: ALT 16 U/L (10-49); AST 23 U/L (<34); Albumin 4.4 g/dL (3.2-5.0); Alkaline Phosphatase 88 U/L (46-116); Anion Gap 9.1 mmol/L (3-11); BUN 11 mg/dL (9-23); Bilirubin, Total 0.6 mg/dL (0.2-1.2); CO2 26.9 mmol/L (20.0-31.0); Calcium 9.2 mg/dL (8.3-10.6); Chloride 105 mmol/L (98-107); Glucose 79 mg/dL (74-106); Potassium 4.0 mmol/L (3.5-5.1); Sodium 141 mmol/L (136-145); Total Protein 7.3 g/dL (5.7-8.2)
[2025-05-25 18:43] LABS: FSH 74.4 mIU/mL (See Note)
== END 2025-05-25 00:50 | disposition home or self-care (01) ==
LOC: LBO 00:49
PROVIDERS: PCP Nurse Practitioner Family; Visit Provider Nurse Practitioner Family
DX: E28.39 Other primary ovarian failure (principal); C50.911 Malignant neoplasm of unspecified site of right female breast
CPT/HCPCS: 36415; 80053; 82670; 83001; 85025